=== PATIENT | male | born 1940 | race Caucasian/White ===

== ENCOUNTER 2017-10-12 09:06 | Emergency (ER) | payer OTHER ==
[~2017-10-12] VITALS: Ht 162.6 cm; Wt 74.0 kg
[2017-10-12 09:13] VITALS: BP 141/75
--- NOTE | 2017-10-12 09:23 | NUR ---
DR FIERRO AT CHAIR FOR BEDSIDE.
[2017-10-12] MEDS ORDERED: DEXAMETHASONE 10 MG/ML VIAL IM ONE (09:25)
[2017-10-12] MEDS ORDERED: KETOROLAC 30 MG/ML VIAL IM ONE (09:25)
--- NOTE | 2017-10-12 09:29 | NUR ---
PT COMES TO ER WITH C/O RIGHT HAND PAIN, UNABLE TO MAKE A FIST WITHOUT PAIN X 18 DAYS DENIES INJURY, NO SWELLING NOTED---+2 RADIAL PULSE < 3 SEC CAP REFILL BU
--- NOTE | 2017-10-12 10:11 | NUR ---
WAITING FOR XRAY RESULTS.
[2017-10-12 10:57] VITALS: BP 137/71
== END 2017-10-12 10:59 | disposition home or self-care (01) ==
LOC: MED 09:06
DX: M25.541 Pain in joints of right hand (principal); M25.531 Pain in right wrist; I10 Essential (primary) hypertension; M19.90 Unspecified osteoarthritis, unspecified site
CPT/HCPCS: 73130; 96372; 99284; J1100; J1885

== ENCOUNTER 2018-06-02 08:09 | Emergency (ER) | payer OTHER ==
[~2018-06-02] VITALS: Ht 167.6 cm; Wt 74.8 kg
[~2018-06-02 08:09] MED LIST: LEVO500T2 PO
[2018-06-02 08:13] VITALS: BP 161/72
[2018-06-02] MEDS: NACL 0.9% 1,000 ML IV ONE (08:39)
[2018-06-02] MEDS: KETOROLAC 30 MG/ML VIAL IVP ONE (08:39)
[2018-06-02 09:00] LABS: BASOPHILS % (AUTO) 0.2 % (0.0-2.0); EOSINOPHILS # (AUTO) 0.2 K/uL (0-0.4); EOSINOPHILS % (AUTO) 2.1 % (0.0-4.0); HEMATOCRIT 41.2 % (36-52); HEMOGLOBIN 13.5 g/dL (12.0-18.0); LYMPHOCYTES % (AUTO) 10.7 % (20.5-51.1); MEAN CORPUSCULAR HEMOGLOBIN 31 pg (27-31); MEAN CORPUSCULAR HGB CONC 33 g/dL (33-37); MEAN CORPUSCULAR VOLUME 93.3 fL (80-94); MONOCYTES # (AUTO) 0.7 K/uL (0.8-1.0); MONOCYTES % (AUTO) 7.1 % (1.7-9.3); NEUTROPHILS # (AUTO) 7.5 K/uL (1.8-7.7); NEUTROPHILS % (AUTO) 79.9 % (42.2-75.2); PLATELET COUNT (AUTO) 211 K/uL (140-450); RED BLOOD CELL COUNT(AUTO) 4.42 MIL/uL (4.20-6.10); RED CELL DISTRIBUTION WIDTH 13.1 % (11.6-13.7); WHITE BLOOD COUNT (AUTO) 9.4 K/uL (4.8-10.8)
[2018-06-02 09:14] LABS: ANION GAP 11.2 (8-16); CARBON DIOXIDE 28.2 mmol/L (21-32); CHLORIDE 100 mmol/L (98-107); CREATININE 1.3 mg/dL (0.7-1.3); GLUCOSE 106 mg/dL (74-106); POTASSIUM 4.4 mmol/L (3.5-5.1); SODIUM SERUM 135 mmol/L (136-145); UREA NITROGEN, BLOOD 18 mg/dL (7-18)
[2018-06-02 09:18] LABS: PROTHROMBIN TIME 8.8 secs (10.8-13.4)
[2018-06-02 09:21] LABS: ALBUMIN 3.6 g/dL (3.4-5.0); ASPARTATE AMINOTRANSFERASE 16 U/L (15-37); TOTAL BILIRUBIN 0.3 mg/dL (0.0-1.0)
[2018-06-02] MEDS ORDERED: VANCOMYCIN 1,000 MG VIAL ONE (09:41)
[2018-06-02] MEDS: VANCOMYCIN 1,000 MG in DEXTROSE 5% 250 ML IV ONE (09:45)
[2018-06-02 11:48] VITALS: BP 137/66
== END 2018-06-02 11:49 | disposition home or self-care (01) ==
LOC: MED 08:09
DX: L03.115 Cellulitis of right lower limb (principal); I10 Essential (primary) hypertension; Z79.899 Other long term (current) drug therapy
CPT/HCPCS: 36415; 73562; 80053; 83605; 85025; 85610; 85730; 87040; 96361; 96365; 96366; 96375; 99285; J1885; J3370; J7030; 96374

== ENCOUNTER 2018-09-21 08:53 | Emergency (ER) | payer OTHER ==
[~2018-09-21] VITALS: Ht 165.1 cm; Wt 72.3 kg
[2018-09-21 08:55] VITALS: BP 146/86
--- NOTE | 2018-09-21 09:05 | NUR ---
78 yo m bib self w/ c/o 8/10 bl rib cage pain x 8 days. pt denies cough/recent illness or injury. denies carrying or lifting heavy objects. pt ambulatory w/ steady gait. aaox4, gcs 15. cms intact. rr even and unlabored, lungs bl clear. -ecchymosis/deformity. denies CP/SOB. reports pain is worse when lying down or sitting. nad. awaiting er md thompson.
--- NOTE | 2018-09-21 09:28 | NUR ---
pt to ct via w/c accompanied by sewing pattern layout technician
--- NOTE | 2018-09-21 09:35 | NUR ---
pt returned from ct via w/c accompanied echocardiography radiology technologist and returned to rm 11 without incident.
[2018-09-21] MEDS ORDERED: IBUPROFEN 800 MG TAB PO ONE (10:25)
[2018-09-21 10:48] VITALS: BP 142/82
== END 2018-09-21 10:48 | disposition home or self-care (01) ==
LOC: MED 08:53
DX: R07.81 Pleurodynia (principal); I10 Essential (primary) hypertension; Z79.899 Other long term (current) drug therapy
CPT/HCPCS: 71250; 99284

== ENCOUNTER 2022-10-12 14:28 | Emergency (ER) | payer OTHER ==
[~2022-10-12] VITALS: Ht 162.1 cm; Wt 67.8 kg
[2022-10-12 14:40] VITALS: BP 164/63
--- NOTE | 2022-10-12 14:46 | NUR ---
PT AMB TO BED 11.
--- NOTE | 2022-10-12 15:00 | NUR ---
82/m walked in c/o b/l hand numbness that gets worse in the morning x 3 months. no facial droop or speech slur noted. aao4, ambulatory. pt reports weakness to b/l hand manager msw strength. on monitor, vitals stable. PMH: HTN
[2022-10-12 15:36] LABS: BASOPHILS # (AUTO) 0.1 K/uL (0.00-0.22); BASOPHILS % (AUTO) 0.7 % (0.0-2.0); EOSINOPHILS # (AUTO) 0.2 K/uL (0-0.4); EOSINOPHILS % (AUTO) 2.9 % (0.0-4.0); HEMATOCRIT 37.9 % (36-52); HEMOGLOBIN 12.5 g/dL (12.0-18.0); LYMPHOCYTES # (AUTO) 1.6 K/uL (2.0-11.5); LYMPHOCYTES % (AUTO) 19.1 % (20.5-51.1); MEAN CORPUSCULAR HEMOGLOBIN 30 pg (27-31); MEAN CORPUSCULAR HGB CONC 33 g/dL (33-37); MEAN CORPUSCULAR VOLUME 91.9 fL (80-94); NEUTROPHILS # (AUTO) 5.3 K/uL (1.8-7.7); NEUTROPHILS % (AUTO) 65.3 % (42.2-75.2); PLATELET COUNT (AUTO) 238 K/uL (140-450); RED BLOOD CELL COUNT(AUTO) 4.12 MIL/uL (4.20-6.10); RED CELL DISTRIBUTION WIDTH 13.1 % (11.6-13.7); WHITE BLOOD COUNT (AUTO) 8.2 K/uL (4.8-10.8)
[2022-10-12 15:57] LABS: ALBUMIN 3.9 g/dL (3.4-5.0); ANION GAP 11.5 (8-16); ASPARTATE AMINOTRANSFERASE 16 U/L (15-37); CARBON DIOXIDE 30.1 mmol/L (21-32); CHLORIDE 105 mmol/L (98-107); CREATININE 1.6 mg/dL (0.6-1.3); GLUCOSE 103 mg/dL (74-106); POTASSIUM 4.6 mmol/L (3.5-5.1); SODIUM SERUM 142 mmol/L (136-145); TOTAL BILIRUBIN 0.3 mg/dL (0.0-1.0); UREA NITROGEN, BLOOD 33 mg/dL (7-18)
[2022-10-12] MEDS ORDERED: AMLO5TAB PO (16:16)
[2022-10-12 16:35] VITALS: BP 134/89
--- NOTE | 2022-10-12 16:35 | NUR ---
Patient discharged with v/s stable. Written and verbal after care instructions FOR CKD AND RAYNAUD PHEN.given and explained. Patient alert, oriented and verbalized understanding of instructions. Ambulatory with steady gait. All questions addressed prior to discharge. ID band removed. Patient advised to follow up with PMD. Rx of NORVASC given. Opportunity to ask questions provided and answered.
--- NOTE | 2022-10-12 16:36 | NUR ---
The patient's care was reviewed and supervised by Nan Pickett, RN, RN.
== END 2022-10-12 16:35 | disposition home or self-care (01) ==
LOC: MED 14:28
DX: N28.9 Disorder of kidney and ureter, unspecified (principal); I73.00 Raynaud's syndrome without gangrene; R20.2 Paresthesia of skin; I10 Essential (primary) hypertension; Z86.73 Personal history of transient ischemic attack (TIA), and cerebral infarction without residual deficits; Z79.899 Other long term (current) drug therapy; Z79.2 Long term (current) use of antibiotics
CPT/HCPCS: 36415; 80053; 85025; 99283

== ENCOUNTER 2023-01-04 09:08 | Emergency (ER) | payer OTHER ==
[~2023-01-04] VITALS: Ht 162.6 cm; Wt 69.9 kg
[~2023-01-04 09:08] MED LIST changes: +AMLO5TAB PO
--- NOTE | 2023-01-04 09:26 | NUR ---
PT AMBULATED TO BED 11
[2023-01-04 09:38] VITALS: BP 123/56
[2023-01-04 10:50] LABS: BASOPHILS % (AUTO) 0.7 % (0.0-2.0); EOSINOPHILS # (AUTO) 0.3 K/uL (0-0.4); EOSINOPHILS % (AUTO) 3.6 % (0.0-4.0); HEMATOCRIT 38.8 % (36-52); LYMPHOCYTES # (AUTO) 1.3 K/uL (2.0-11.5); LYMPHOCYTES % (AUTO) 18.4 % (20.5-51.1); MEAN CORPUSCULAR HEMOGLOBIN 31 pg (27-31); MEAN CORPUSCULAR HGB CONC 34 g/dL (33-37); MONOCYTES # (AUTO) 0.6 K/uL (0.8-1.0); MONOCYTES % (AUTO) 8.4 % (1.7-9.3); NEUTROPHILS # (AUTO) 4.9 K/uL (1.8-7.7); NEUTROPHILS % (AUTO) 68.9 % (42.2-75.2); PLATELET COUNT (AUTO) 232 K/uL (140-450); RED BLOOD CELL COUNT(AUTO) 4.26 MIL/uL (4.20-6.10); RED CELL DISTRIBUTION WIDTH 13.1 % (11.6-13.7); WHITE BLOOD COUNT (AUTO) 7.2 K/uL (4.8-10.8)
[2023-01-04 11:13] LABS: ALBUMIN 3.8 g/dL (3.4-5.0); ANION GAP 10.6 (8-16); ASPARTATE AMINOTRANSFERASE 18 U/L (15-37); CARBON DIOXIDE 27.8 mmol/L (21-32); CHLORIDE 105 mmol/L (98-107); CREATININE 1.3 mg/dL (0.6-1.3); GLUCOSE 96 mg/dL (74-106); POTASSIUM 4.4 mmol/L (3.5-5.1); SODIUM SERUM 139 mmol/L (136-145); TOTAL BILIRUBIN 0.3 mg/dL (0.0-1.0); UREA NITROGEN, BLOOD 18 mg/dL (7-18)
[2023-01-04] MEDS ORDERED: NITR2OIN30 TD (12:12)
[2023-01-04] MEDS ORDERED: NIFE30TE5 PO (12:12)
[2023-01-04 12:27] VITALS: BP 123/56
--- NOTE | 2023-01-04 12:30 | NUR ---
Patient discharged with v/s stable. Written and verbal after care instructions given and explained. Patient verbalized understanding. Ambulatory with to home. All questions addressed prior to discharge. Advised to follow up with PMD.
== END 2023-01-04 12:27 | disposition home or self-care (01) ==
LOC: MED 09:08
DX: I73.00 Raynaud's syndrome without gangrene (principal); I10 Essential (primary) hypertension; Z86.73 Personal history of transient ischemic attack (TIA), and cerebral infarction without residual deficits; Z79.899 Other long term (current) drug therapy; Z79.2 Long term (current) use of antibiotics
CPT/HCPCS: 36415; 71045; 80053; 85025; 99284; Q0092

== ENCOUNTER 2023-07-31 08:19 | Emergency (ER) | payer OTHER ==
[~2023-07-31] VITALS: Ht 167.6 cm; Wt 67.1 kg
[~2023-07-31 08:19] MED LIST changes: +NIFE30TE5 PO; +NITR2OIN30 TD
[2023-07-31 08:25] VITALS: BP 156/81; PULSE 73; RESP 18; TEMP 98.1; O2SAT 99
[2023-07-31] MEDS ORDERED: KETOROLAC 60 MG/2 ML VIAL IM ONE (09:00)
[2023-07-31] MEDS ORDERED: IBUP-2213 PO (09:02)
[2023-07-31 09:10] VITALS: BP 156/81; PULSE 73; RESP 18; TEMP 98.1; O2SAT 99
== END 2023-07-31 09:10 | disposition home or self-care (01) ==
LOC: MED 08:19
DX: M79.641 Pain in right hand (principal); I10 Essential (primary) hypertension; Z86.73 Personal history of transient ischemic attack (TIA), and cerebral infarction without residual deficits; Z79.899 Other long term (current) drug therapy
CPT/HCPCS: 82948; 93005; 96372; 99283; J1885

== ENCOUNTER 2024-02-26 06:51 | Inpatient (IN) | payer OTHER ==
[~2024-02-26] VITALS: Ht 167.6 cm; Wt 66.7 kg
[~2024-02-26 06:51] MED LIST changes: +IBUP-2213 PO
[2024-02-26 07:09] VITALS: BP 181/87; PULSE 90; RESP 18; TEMP 97.6; O2SAT 98
[2024-02-26 07:59] LABS: BASOPHILS % (AUTO) 0.2 % (0.0-2.0); HEMOGLOBIN 13.9 g/dL (12.0-18.0); LYMPHOCYTES # (AUTO) 0.9 K/uL (2.0-11.5); LYMPHOCYTES % (AUTO) 9.3 % (20.5-51.1); MEAN CORPUSCULAR HEMOGLOBIN 30 pg (27-31); MEAN CORPUSCULAR HGB CONC 33 g/dL (33-37); MEAN CORPUSCULAR VOLUME 91.5 fL (80-94); MONOCYTES # (AUTO) 0.4 K/uL (0.8-1.0); MONOCYTES % (AUTO) 4.3 % (1.7-9.3); NEUTROPHILS # (AUTO) 8.6 K/uL (1.8-7.7); NEUTROPHILS % (AUTO) 86.2 % (42.2-75.2); PLATELET COUNT (AUTO) 196 K/uL (140-450); RED BLOOD CELL COUNT(AUTO) 4.59 MIL/uL (4.20-6.10); RED CELL DISTRIBUTION WIDTH 13.3 % (11.6-13.7)
[2024-02-26 08:24] LABS: ANION GAP 11.1 (8-16); CALCIUM 9.4 mg/dL (8.5-10.1); CARBON DIOXIDE 26.8 mmol/L (21-32); CHLORIDE 103 mmol/L (98-107); CREATININE 1.5 mg/dL (0.6-1.3); GLUCOSE 144 mg/dL (74-106); POTASSIUM 3.9 mmol/L (3.5-5.1); SODIUM SERUM 137 mmol/L (136-145); UREA NITROGEN, BLOOD 25 mg/dL (7-18)
[2024-02-26 08:33] LABS: INR 0.92 (0.8-1.2); PARTIAL THROMBOPLASTIN TIME 26.9 secs (22-35.6); PROTHROMBIN TIME 9.7 secs (10.8-13.4)
[2024-02-26 08:34] LABS: ALANINE AMINOTRANSFERASE 15 U/L (12-78); ALBUMIN 3.8 g/dL (3.4-5.0); ALKALINE PHOSPHATASE 93 U/L (50-136); ASPARTATE AMINOTRANSFERASE 24 U/L (15-37); BILIRUBIN,DIRECT 0.1 mg/dL (0.0-0.3); TOTAL BILIRUBIN 0.7 mg/dL (0.0-1.0); TOTAL PROTEIN, SERUM 7.7 g/dL (6.4-8.2)
[2024-02-26 09:42] VITALS: O2SAT 99
[2024-02-26 10:35] LABS: LACTIC ACID 1.3 mmol/L (0.4-2.0)
[2024-02-26] MEDS: LEVOFLOXACIN 500 MG/D5W PREMIX 100 ML IV ONE (10:42)
[2024-02-26] MEDS: metroNIDAZOLE 500 MG/NS PREMIX 100 ML IV ONE (11:55)
[2024-02-26] MEDS ORDERED: HYDROcodone/APAP 5/325 MG 1 TAB TAB PO PRN (12:05)
[2024-02-26] MEDS ORDERED: ATOR20TA40 PO (12:13)
[2024-02-26] MEDS ORDERED: NIFE60TA58 PO (12:13)
[2024-02-26] MEDS ORDERED: LATA2.5S14 OP (12:13)
[2024-02-26 12:34] LABS: BLOOD GAS BASE EXCESS -0.7 mmol/L (-2.0-2.0); BLOOD GAS HCO3 22.5 mmol/L (22-26); BLOOD GAS PCO2 32.9 mmHg (35-45); BLOOD GAS PH 7.452 (7.35-7.45); BLOOD GAS PO2 70.1 mmHg (75-100)
[2024-02-26 12:35] LABS: BLOOD GAS O2 SAT% 94.9 % (92.0-98.5)
[2024-02-26 12:41] LABS: BASOPHILS # (AUTO) 0.1 K/uL (0.00-0.22); BASOPHILS % (AUTO) 0.5 % (0.0-2.0); EOSINOPHILS % (AUTO) 0.1 % (0.0-4.0); HEMATOCRIT 38.9 % (36-52); HEMOGLOBIN 13.1 g/dL (12.0-18.0); LYMPHOCYTES # (AUTO) 0.9 K/uL (2.0-11.5); LYMPHOCYTES % (AUTO) 7.8 % (20.5-51.1); MEAN CORPUSCULAR HEMOGLOBIN 30 pg (27-31); MEAN CORPUSCULAR HGB CONC 34 g/dL (33-37); MONOCYTES # (AUTO) 0.9 K/uL (0.8-1.0); MONOCYTES % (AUTO) 7.5 % (1.7-9.3); NEUTROPHILS # (AUTO) 9.7 K/uL (1.8-7.7); NEUTROPHILS % (AUTO) 84.1 % (42.2-75.2); PLATELET COUNT (AUTO) 194 K/uL (140-450); RED BLOOD CELL COUNT(AUTO) 4.32 MIL/uL (4.20-6.10); RED CELL DISTRIBUTION WIDTH 13.3 % (11.6-13.7); WHITE BLOOD COUNT (AUTO) 11.5 K/uL (4.8-10.8)
[2024-02-26 12:43] LABS: INR 0.94 (0.8-1.2); PARTIAL THROMBOPLASTIN TIME 29.1 secs (22-35.6); PROTHROMBIN TIME 9.9 secs (10.8-13.4)
[2024-02-26 12:50] VITALS: PULSE 94; RESP 17; O2SAT 98
[2024-02-26 12:57] LABS: LACTIC ACID 0.9 mmol/L (0.4-2.0)
[2024-02-26 13:06] LABS: ALANINE AMINOTRANSFERASE 14 U/L (12-78); ALBUMIN 3.3 g/dL (3.4-5.0); ALKALINE PHOSPHATASE 85 U/L (50-136); AMYLASE 82 U/L (25-115); ANION GAP 13.8 (8-16); ASPARTATE AMINOTRANSFERASE 18 U/L (15-37); CALCIUM 8.7 mg/dL (8.5-10.1); CARBON DIOXIDE 23.5 mmol/L (21-32); CHLORIDE 103 mmol/L (98-107); CREATININE 1.2 mg/dL (0.6-1.3); GLUCOSE 128 mg/dL (74-106); LIPASE 62 U/L (16-77); POTASSIUM 3.3 mmol/L (3.5-5.1); SODIUM SERUM 137 mmol/L (136-145); TOTAL BILIRUBIN 0.7 mg/dL (0.0-1.0); UREA NITROGEN, BLOOD 22 mg/dL (7-18)
[2024-02-26 16:00] VITALS: BP 146/72; PULSE 89; RESP 17; TEMP 98.2; O2SAT 97
[2024-02-26] MEDS: NACL 0.9% 1,000 ML IV SCH (17:24)
[2024-02-26 20:00] VITALS: BP 129/62; PULSE 98; RESP 18; TEMP 98.9; O2SAT 97
[2024-02-26] MEDS: SODIUM PHOSPHATE 118 ML ENEM RC ONE (21:41)
[2024-02-26] MEDS: metroNIDAZOLE 500 MG/NS PREMIX 100 ML IV SCH (21:41)
[2024-02-26] MEDS: SUPREP BOWEL PREP KIT 354 ML SOLN.RECON PO ONE (21:42)
[2024-02-27 04:00] VITALS: BP 146/54; PULSE 94; RESP 18; TEMP 97.8; O2SAT 96
[2024-02-27 08:00] VITALS: BP 164/65; PULSE 88; RESP 20; TEMP 97.1; O2SAT 98
[2024-02-27] MEDS: diphenhydrAMINE 50 MG/ML VIAL ONE (13:53)
[2024-02-27] MEDS: fentaNYL citrate 0.05 MG/ML VIAL ONE (13:53)
[2024-02-27] MEDS: MIDAZOLAM 5 MG/5 ML VIAL ONE (13:53)
[2024-02-27] MEDS: fentaNYL citrate 0.05 MG/ML VIAL IVP ONE (14:21)
[2024-02-27] MEDS: MIDAZOLAM 2 MG/2 ML VIAL IVP ONE (14:21)
[2024-02-27 15:06] LABS: HEPATITIS A ANTIBODY IGM Negative (Negative); HEPATITIS B CORE AB TOTAL Negative (Negative); HEPATITIS B CORE, IGM Negative (Negative); HEPATITIS B SURFACE ANTIBODY Non Reactive (.); HEPATITIS B SURFACE ANTIGEN Negative (Negative); HEPATITIS C VIRUS ANTIBODY Non Reactive (Non Reactive)
[2024-02-27 16:00] VITALS: BP 134/48; PULSE 84; RESP 18; TEMP 98; O2SAT 96
[2024-02-27 17:21] LABS: HEPATITIS A ANTIBODY TOTAL Positive (Negative)
[2024-02-27] MEDS: metroNIDAZOLE 250 MG TAB PO SCH (18:02)
[2024-02-27 20:00] VITALS: BP 149/60; PULSE 88; PULSE 97; RESP 18; RESP 20; TEMP 97.3; O2SAT 97; O2SAT 98
[2024-02-28] MEDS ORDERED: METR-520 PO (01:18)
[2024-02-28] MEDS ORDERED: LEVO750T75 PO (01:18)
[2024-02-28] MEDS ORDERED: ATOR20TA PO (01:19)
[2024-02-28 04:00] VITALS: BP 116/57; PULSE 72; RESP 18; TEMP 97; O2SAT 98
[2024-02-28 08:00] VITALS: BP 139/60; PULSE 68; RESP 20; TEMP 98.2; O2SAT 98
[2024-02-28] MEDS: ATORVASTATIN 20 MG TAB PO SCH (08:54)
[2024-02-28 09:53] LABS: BASOPHILS % (AUTO) 0.3 % (0.0-2.0); EOSINOPHILS # (AUTO) 0.3 K/uL (0-0.4); EOSINOPHILS % (AUTO) 2.8 % (0.0-4.0); HEMATOCRIT 38.7 % (36-52); HEMOGLOBIN 12.8 g/dL (12.0-18.0); LYMPHOCYTES # (AUTO) 1.4 K/uL (2.0-11.5); LYMPHOCYTES % (AUTO) 11.8 % (20.5-51.1); MEAN CORPUSCULAR HEMOGLOBIN 30 pg (27-31); MEAN CORPUSCULAR HGB CONC 33 g/dL (33-37); MEAN CORPUSCULAR VOLUME 91.3 fL (80-94); MONOCYTES # (AUTO) 0.6 K/uL (0.8-1.0); MONOCYTES % (AUTO) 5.2 % (1.7-9.3); NEUTROPHILS # (AUTO) 9.4 K/uL (1.8-7.7); NEUTROPHILS % (AUTO) 79.9 % (42.2-75.2); PLATELET COUNT (AUTO) 196 K/uL (140-450); RED BLOOD CELL COUNT(AUTO) 4.24 MIL/uL (4.20-6.10); RED CELL DISTRIBUTION WIDTH 13.5 % (11.6-13.7); WHITE BLOOD COUNT (AUTO) 11.7 K/uL (4.8-10.8)
[2024-02-28 10:11] LABS: ALANINE AMINOTRANSFERASE 12 U/L (12-78); ALBUMIN 3.2 g/dL (3.4-5.0); ALKALINE PHOSPHATASE 75 U/L (50-136); ASPARTATE AMINOTRANSFERASE 14 U/L (15-37); CALCIUM 8.8 mg/dL (8.5-10.1); CARBON DIOXIDE 26.1 mmol/L (21-32); CHLORIDE 103 mmol/L (98-107); CREATININE 1.2 mg/dL (0.6-1.3); GLUCOSE 202 mg/dL (74-106); POTASSIUM 3.1 mmol/L (3.5-5.1); SODIUM SERUM 138 mmol/L (136-145); TOTAL BILIRUBIN 0.6 mg/dL (0.0-1.0); TOTAL PROTEIN, SERUM 6.9 g/dL (6.4-8.2); UREA NITROGEN, BLOOD 19 mg/dL (7-18)
[2024-02-28 12:39] VITALS: BP 139/60; PULSE 68; RESP 20; TEMP 98.2
[2024-02-28] MEDS: POTASSIUM CHLORIDE 10 MEQ TABER PO SCH (13:28)
== END 2024-02-28 15:25 | disposition home or self-care (01) | DRG 377 ==
LOC: MED 06:51 → MMU 12:05 → MTU 12:33
PROVIDERS: ADMIT Hospitalist; ATTEND Hospitalist
PROC: 0DBE8ZX Excision of Large Intestine, Via Natural or Artificial Opening Endoscopic, Diagnostic (ICD-10-PCS; principal; 2024-02-27 16:40)
DX: K57.31 Diverticulosis of large intestine without perforation or abscess with bleeding (principal); N17.0 Acute kidney failure with tubular necrosis; K55.9 Vascular disorder of intestine, unspecified; I10 Essential (primary) hypertension; E78.5 Hyperlipidemia, unspecified; Z93.3 Colostomy status; Z79.1 Long term (current) use of non-steroidal anti-inflammatories (NSAID); Z79.899 Other long term (current) drug therapy
CPT/HCPCS: 36415; 71045; 80048; 80053; 80076; 82140; 82150; 83605; 83690; 84484; 84703; 85025; 85379; 85384; 85610; 85730; 86704; 86706; 86708; 86709; 86803; 86886; 86900; 86901; 87040; 87081; 87340; 88305; 93005; 96365; 96367; 99285; J0696; J1200; J1956; J2250; J3010; J3490; J7060